=== PATIENT | female | born 1965 | race Caucasian/White ===

== ENCOUNTER 2023-04-19 13:56 | Emergency (ER) | payer OTHER, SELFPAY ==
[2023-04-19 14:14] VITALS: BP 133/83; PULSE 71; RESP 18; TEMP 36.6; O2SAT 97; BMI 31.5
[2023-04-19 15:11] LABS: Basophils Absolute Auto 0.02 K/uL (0.00-0.30); Basophils Percent Auto 0.4 % (0.0-3.0); Eosinophils Absolute Auto 0.26 K/uL (0.00-0.50); Eosinophils Percent Auto 4.7 % (0.0-7.0); Hematocrit 42.9 % (33.0-51.0); Hemoglobin* 14.2 gm/dL (12.0-16.0); Immature Granulocytes Abs Auto 0.01 K/uL (0.00-0.30); Immature Granulocytes Pct Auto 0.2 %; Lymphocytes Absolute Auto 2.05 K/uL (0.90-2.90); Lymphocytes Percent Auto 36.7 % (20-44); Mean Corpuscular HGB Conc 33 gm/dL (32-36); Mean Corpuscular Hemoglobin 28 pg (26-34); Mean Corpuscular Volume 84 fL (80-100); Neutrophils Absolute Auto 2.69 K/uL (1.7-7.0); Platelet Count* 290 K/uL (140-440); Red Blood Count 5.09 m/uL (4.00-5.20); White Blood Count* 5.59 K/uL (4.50-11.00)
[2023-04-19 15:15] LABS: Slide Review Reflex No
[2023-04-19 15:37] LABS: Chloride* 106 mmol/L (96-114); Sodium* 139 mmol/L (135-149)
[2023-04-19 15:38] LABS: Potassium* 3.7 mmol/L (3.6-5.1)
[2023-04-19 15:40] LABS: Blood Urea Nitrogen* 9 mg/dL (7-30); Carbon Dioxide* 28 mmol/L (20-32); Creatinine* 0.6 mg/dL (0.5-1.5); Est. Creatinine Clearance* 99.18; Estimated Glomerular Filt Rate 106 ml/min
[2023-04-19 15:41] LABS: Calcium* 9.3 mg/dL (8.4-10.6); Glucose* 87 mg/dL (60-115)
--- NOTE | 2023-04-19 17:26 | ED.GENADULT ---
HPI - General Adult General Chief complaint: Chest Pain Stated complaint: severe chest pains, L arm tingling Time Seen by Provider: 04/19/23 17:24 History of Present Illness HPI narrative: Chest pain starting last night. When she woke up this morning, noted headache. After taking a shower today she noted tingling in the left arm. Denies any cardiac history . Denies neck or jaw pain. 57-year-old woman presenting to the emergency department with concern of left ?breast bone? area pain. This is sharp in nature. She has had this intermittently not associated with any particular activity over the last few months. Does not note arrhythmia is at that time. She is not particularly short of breath. She does not have trouble really with heartburn. Notes superficial thrombus during COVID. Did have a headache this morning. This chest discomfort started last night. Subsequently was noting some tingling in the left arm after shower today. Was unusual is that this discomfort has continued much longer than at most half an hour that she has experienced in the past. Is not having any nausea. Is not describing history of trauma. No exacerbating or relieving factors except that when this occurs typically it will cause her to grab at her chest in that left mid sternal area. Does have a history of IBS but notes that to be fairly well controlled right now. Related Data Home Medications Medication Instructions Recorded Confirmed citalopram 20 mg tablet 20 mg PO QAM 04/19/23 04/19/23 Allergies Allergy/AdvReac Type Severity Reaction Status Date / Time codeine Allergy Mild Gastrointestinal Verified 04/19/23 14:22 Upset latex AdvReac Mild Verified 04/19/23 14:22 Review of Systems Status of ROS: Reports: 6 or more systems reviewed and unremarkable except as noted in History and below Exam Narrative: Exam Narrative: Very pleasant. NAD perhaps mildly concerned. She is breathing easily. Eyes are little injected. Neck is supple without supraclavicular crepitus. Lungs are clear equal expansion excursion. Examination of the back results in some discomfort to palpation at the left rhomboid musculature versus the right. Strong and equal pulses in the upper extremities. She is well-perfused. Lower extremities with some superficial venous varicosities without swelling or pain. Abdomen is full soft nontender. Some mild discomfort to palpation over the left mid sternum/costal sternal junction. No swelling or erythema or rashes noted otherwise. Const: Vital Signs, click to edit/add: Vital Signs - 24 hr 04/19/23 14:14 04/19/23 18:02 Temperature 97.9 F Pulse Rate [Pulse Oximeter] 71 58 L Respiratory Rate 18 18 Blood Pressure [[facility] Upper Arm] 133/83 150/82 H Pulse Oximetry 97 98 Oxygen Delivery Me thod Room Air Room Air Documenting provider has reviewed patient's vital signs: yes Course Vital Signs Vital signs: Initial Vital Signs Temperature 97.9 F 04/19/23 14:14 Temperature Source Temporal Artery Scan 04/19/23 14:14 Pulse Rate 71 04/19/23 14:14 Pulse Rhythm Regular 04/19/23 14:14 Pulse Strength 3+ Normal 04/19/23 14:14 Respiratory Rate 18 04/19/23 14:14 Blood Pressure 133/83 04/19/23 14:14 Blood Pressure Mean 99 04/19/23 14:14 Blood Pressure Position Sitting 04/19/23 14:14 Pulse Oximetry 97 04/19/23 14:14 Oxygen Delivery Method Room Air 04/19/23 14:14 Vital Signs Temperature 97.9 F 04/19/23 14:14 Pulse Rate 71 04/19/23 14:14 Respiratory Rate 18 04/19/23 14:14 Blood Pressure 133/83 04/19/23 14:14 Pulse Oximetry 97 04/19/23 14:14 Oxygen Delivery Method Room Air 04/19/23 14:14 Temperature 97.9 F 04/19/23 14:14 Pulse Rate 58 L 04/19/23 18:02 Respiratory Rate 18 04/19/23 18:02 Blood Pressure 150/82 H 04/19/23 18:02 Pulse Oximetry 98 04/19/23 18:02 Oxygen Delivery Method Room Air 04/19/23 18:02 Medical Decision Making MDM Narrative Medical decision making narrative: Does not sound to be ischemic cardiac in nature. Indeed troponin I by the time I am seeing Ms. Castorena is negative. Seems atypical for pulmonary embolus. Possible vascular disruption? Aneurysm? Unlikely pneumonia. Unusual presentation for pneumomediastinum/pneumothorax. This could be some esophageal spasm. Certainly could be some shifting of the costo-sternal junction. She is not tender in the right upper quadrant. Vasospasm of some unspecified vasculature? This would seem to be atypical chest pain at this point. Likely chest wall pain. Costochondritis? symptoms in the left arm certainly could be radiating from the tension in the left shoulder/rhomboid musculature. CBC and basic is normal as well. Adding on D-dimer, CRP and transaminases. AST slightly elevated 45 and a CRP slightly elevated of 1.6. The setting normal D-dimer doubt any vascular issue or pulmonary embolus. Did not have right upper abdominal pain is not indicating recurrent food intolerances. Chest x-ray by my read WNL Did not want any pain medication during time in the emergency department. Still with discomfort on departure. Rechecked point of care troponin still 0 See patient discharge plan Lab Data Lab results reviewed: Yes I reviewed the patient's lab results Labs: Lab Results 04/19/23 04/19/23 04/19/23 Range/Units 15:05 15:07 19:01 WBC 5.59 (4.50-11.00) K/uL RBC 5.09 (4.00-5.20) m/uL Hgb 14.2 (12.0-16.0) gm/dL Hct 42.9 (33.0-51.0) % MCV 84 (80-100) fL MCH 28 (26-34) pg MCHC 33 (32-36) gm/dL RDW Coeff of Lucas 13.0 (11.5-15.5) % Plt Count 290 (140-440) K/uL Neut % (Auto) 48.0 (42.0-72.0) % Lymph % (Auto) 36.7 (20-44) % Apache % (Auto) 10.0 (0.0-11.0) % Eos % (Auto) 4.7 (0.0-7.0) % Baso % (Auto) 0.4 (0.0-3.0) % Neut # (Auto) 2.69 (1.7-7.0) K/uL Lymph # (Auto) 2.05 (0.90-2.90) K/uL Apache # (Auto) 0.60 (0.00-0.90) K/UL Eos # (Auto) 0.26 (0.00-0.50) K/uL Baso # (Auto) 0.02 (0.00-0.30) K/uL Abs Immat Gran (auto) 0.01 (0.00-0.30) K/uL Imm/Tot Granulo (auto) 0.2 % D-Dimer Quant (PE/DVT) 0.37 (0.00-0.50) ug/ml Sodium 139 (135-149) mmol/L Potassium 3.7 (3.6-5.1) mmol/L Chloride 106 (96-114) mmol/L Carbon Dioxide 28 (20-32) mmol/L BUN 9 (7-30) mg/dL Creatinine 0.6 (0.5-1.5) mg/dL Estimated Creat Clear 99.18 Estimated GFR 106 ml/min Glucose 87 (60-115) mg/dL Calcium 9.3 (8.4-10.6) mg/dL Total Bilirubin 0.4 (0.1-1.5) mg/dL Direct Bilirubin 0.1 (0.0-0.5) mg/dL AST 45 H (12-35) U/L ALT 27 (4-35) U/L Alkaline Phosphatase 65 (40-150) U/L C-Reactive Protein 1.6 H (0.5-1.0) mg/dL Total Protein 7.7 (6.0-8.3) g/dL Albumin 4.3 (3.3-5.0) g/dL Lab Acknowledgement Test Added POC Troponin I 0.00 L (0.01-0.04) ng/ml 04/19/23 Range/Units 20:03 WBC (4.50-11.00) K/uL RBC (4.00-5.20) m/uL Hgb (12.0-16.0) gm/dL Hct (33.0-51.0) % MCV (80-100) fL MCH (26-34) pg MCHC (32-36) gm/dL RDW Coeff of Lucas (11.5-15.5) % Plt Count (140-440) K/uL Neut % (Auto) (42.0-72.0) % Lymph % (Auto) (20-44) % [place] % (Auto) (0.0-11.0) % Eos % (Auto) (0.0-7.0) % Baso % (Auto) (0.0-3.0) % Neut # (Auto) (1.7-7.0) K/uL Lymph # (Auto) (0.90-2.90) K/uL [place] # (Auto) (0.00-0.90) K/UL Eos # (Auto) (0.00-0.50) K/uL Baso # (Auto) (0.00-0.30) K/uL Abs Immat Gran (auto) (0.00-0.30) K/uL Imm/Tot Granulo (auto) % D-Dimer Quant (PE/DVT) (0.00-0.50) ug/ml Sodium (135-149) mmol/L Potassium (3.6-5.1) mmol/L Chloride (96-114) mmol/L Carbon Dioxide (20-32) mmol/L BUN (7-30) mg/dL Creatinine (0.5-1.5) mg/dL Estimated Creat Clear Estimated GFR ml/min Glucose (60-115) mg/dL Calcium (8.4-10.6) mg/dL Total Bilirubin (0.1-1.5) mg/dL Direct Bilirubin (0.0-0.5) mg/dL AST (12-35) U/L ALT (4-35) U/L Alkaline Phosphatase (40-150) U/L C-Reactive Protein (0.5-1.0) mg/dL Total Protein (6.0-8.3) g/dL Albumin (3.3-5.0) g/dL Lab Acknowledgement POC Troponin I 0.00 L (0.01-0.04) ng/ml ECG Data Attestation: I personally reviewed and interpreted this ECG as follows: (Normal sinus rhythm. Rate of 73. No acute ischemic changes. ) Discharge Plan Discharge Clinical Impression: Chest wall pain, Atypical chest pain, Rhomboid muscle pain Patient Disposition: Home w/ Parent or Adult Condition: Stable Additional Instructions: See handout on stretches/strengthening for the upper back that might be helpful. Consider doing these daily for some weeks. It is not clear to me what is causing your sternal area chest pain. Costochondritis is one consideration. This can be helped by taking 400-600 mg of ibuprofen 2-3 times daily for 5 days or up to 500 mg of naproxen 2 times daily for the same duration. Might want to take either with a little food. Return for increasing chest pain particularly associated with diaphoresis or nausea or lightheadedness or shortness of breath. Would also a follow-up with your primary care provider to discuss further evaluation of chest pain. I will call you if this last lab test we are doing is concerning. Prescriptions: No Action citalopram 20 mg tablet 20 mg PO QAM Follow Up/Referrals: Anselmo Salcedo MD [Primary Care Provider] - Stand Alone Forms: [employer] Info Instructions
--- NOTE | 2023-04-19 17:50 | CRLHL7_ITS ---
For Patients: As a result of the Cures Act, medical imaging exams and procedure reports are released immediately into your electronic medical record. You may view this report before your referring provider. If you have questions, please contact your health care provider. INDICATION: Midsternal chest pain.. TECHNIQUE: Chest 1 views. COMPARISON: None. FINDINGS: Cardiovascular and mediastinum: Cardiomediastinal silhouette is within normal limits. Lungs and pleural spaces: Lungs are clear. No sign of pleural effusion. No pneumothorax. Bones and soft tissues: No significant findings. IMPRESSION: No acute cardiopulmonary process identified. Dictated by Ryan Beltrán MD @ 04/19/2023 6:38:23 PM (Electronically Signed)
[2023-04-19 18:02] VITALS: BP 150/82; PULSE 58; RESP 18; O2SAT 98
[2023-04-19 19:05] LABS: Albumin* 4.3 g/dL (3.3-5.0)
[2023-04-19 19:08] LABS: Alanine Aminotransferase* 27 U/L (4-35); Alkaline Phosphatase* 65 U/L (40-150); Aspartate Amino Transferase* 45 U/L (12-35); Bilirubin Direct* 0.1 mg/dL (0.0-0.5); Bilirubin Total* 0.4 mg/dL (0.1-1.5); D Dimer Quantitative* 0.37 ug/ml (0.00-0.50); Total Protein* 7.7 g/dL (6.0-8.3)
[2023-04-19 19:11] LABS: C Reactive Protein* 1.6 mg/dL (0.5-1.0)
== END 2023-04-19 20:19 | disposition home or self-care (01) ==
PROVIDERS: Emergency Provider Family Medicine; PCP Family Medicine
DX: R07.89 Other chest pain (principal); M79.10 Myalgia, unspecified site
CPT/HCPCS: 36415; 71045; 80048; 80076; 84484; 85025; 85379; 86140; 93005; 99284; 99285